=== PATIENT | male | born 1965 | race Caucasian/White ===

== ENCOUNTER → 2019-04-02 | Outpatient (CLI) | payer MEDICARE ==
[~2019-04-02] MED LIST: AMLODIPINE10 MG PO; ATIVAN 0.50.5 MG/TAB PO; ATIVAN1 MG PO; EPA/GLA1 SGL PO; FLEXERIL 1010 MG/TAB PO; INDERAL40 MG PO; LIPITOR20 MG PO; LISINOPRIL; NORCO 325 MG-51 TAB PO; PRINZIDE 12.5 M1 TAB PO; SEROQUEL; SEROQUEL 1100 MG/TAB PO; TRILEPTAL 300M300 MG PO; ZIPRASIDONE
== END ==
LOC: BHSO 09:01
DX: F25.0 Schizoaffective disorder, bipolar type (principal)

== ENCOUNTER → 2019-07-02 | Outpatient (CLI) | payer MEDICARE | LOC: BHSO 08:12 | DX: F25.8 Other schizoaffective disorders (principal) | CPT/HCPCS: G0463 ==